=== PATIENT | male | born 1980 | race Caucasian/White ===

== ENCOUNTER 2019-03-17 01:37 | Emergency (ER) | payer OTHER ==
[~2019-03-17] VITALS: Ht 185.4 cm; Wt 88.9 kg
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
--- NOTE | 2019-03-17 01:49 | NUR ---
SENT TO CT
[2019-03-17] MEDS ORDERED: TDAP [DIPH/PERTUSSIS/TET] 0.5 ML VIAL IM ONE ×2 (02:00→02:14)
[2019-03-17 03:10] LABS: BASOPHILS # (AUTO) 0.1 /CMM (0.0-0.2); BASOPHILS % (AUTO) 0.3 % (0.0-2.0); EOSINOPHILS % (AUTO) 0.1 % (0.0-6.0); HEMATOCRIT 41 % (39-51); HEMOGLOBIN 13.6 g/dL (13.5-17.5); LYMPHOCYTES # (AUTO) 0.9 /CMM (0.8-4.8); LYMPHOCYTES % (AUTO) 4.9 % (20.0-44.0); MEAN CORPUSCULAR HGB CONC 33 g/dl (31.0-36.0); MEAN CORPUSCULAR VOLUME 82 fL (80-96); MONOCYTES # (AUTO) 1.2 /CMM (0.1-1.30); MONOCYTES % (AUTO) 7.1 % (2.0-12.0); NEUTROPHILS # (AUTO) 15.2 /CMM (1.8-8.9); NEUTROPHILS % (AUTO) 87.6 % (43.0-81.0); PLATELET COUNT (AUTO) 216 /CMM (150-450); RED BLOOD CELL COUNT(AUTO) 5.04 MIL/uL (4.5-6.0); WHITE BLOOD COUNT (AUTO) 17.3 K/uL (4.3-11.0)
[2019-03-17] MEDS ORDERED: FENTANYL PF 100MCG/2ML AMPUL ONE ×2 (03:13→04:28)
[2019-03-17 03:25] LABS: CALCIUM, SERUM 8.9 mg/dL (8.5-10.1); CREATININE 1.1 mg/dL (0.6-1.3); POTASSIUM 3.8 mmol/L (3.5-5.1)
[2019-03-17] MEDS ORDERED: FENTANYL PF 100MCG/2ML AMPUL IV ONE ×2 (03:30→04:30)
[2019-03-17 03:31] LABS: ALBUMIN 3.8 g/dL (3.4-5.0); BILIRUBIN,DIRECT 0.1 mg/dL (0.0-0.2); BILIRUBIN,TOTAL 0.4 mg/dL (0.2-1.0); TOTAL PROTEIN, SERUM 7.3 g/dL (6.4-8.2)
--- NOTE | 2019-03-17 03:43 | NUR ---
SENT TO CT WITH CONTRAST
[2019-03-17] MEDS ORDERED: IV NS 0.9% 250 ML IV ONE (03:48)
[2019-03-17] MEDS ORDERED: CT SWABBABLE VALVE TRANS SET 1 EA INFUS.SET MC ONE (03:48)
[2019-03-17] MEDS ORDERED: IOHEXOL-300 100 ML VIAL IV ONE (03:48)
[2019-03-17 04:36] VITALS: BP 121/75
--- NOTE | 2019-03-17 04:59 | NUR ---
CALLED [facility] ER FOR TRANSFER. ACCEPTING MD: DR. ARCHULETA NUMBER FOR REPORT: [phone]
--- NOTE | 2019-03-17 05:10 | NUR ---
CALLED [facility] FOR ALS TRANSPORT TO [facility]. ETA:30-45 MIN RUN #: [id number]
--- NOTE | 2019-03-17 05:23 | NUR ---
REPORT GIVEN TO YANNICK GARCIA AT [facility].
--- NOTE | 2019-03-17 06:03 | NUR ---
REPORT GIVEN TO AMBULREPLACED BY [facility]SP[facility] TEAM FOR [facility] AND TRANSPORT RESPONSIBILITIES.
== END 2019-03-17 06:40 | disposition short-term general hospital (02) ==
LOC: ER 01:41
DX: S42.192A Fracture of other part of scapula, left shoulder, initial encounter for closed fracture (principal); S27.322A Contusion of lung, bilateral, initial encounter; V49.49XA Driver injured in collision with other motor vehicles in traffic accident, initial encounter; Y93.89 Activity, other specified; Y92.413 State road as the place of occurrence of the external cause; Y99.8 Other external cause status
CPT/HCPCS: 36415; 70450; 71046; 71260; 72125; 73030; 74177; 80048; 80076; 85025; 90471; 90715; 96374; 96376; 99291; J3010 ×2; J7050; Q9967